=== PATIENT | male | born 1965 | race Caucasian/White ===

== ENCOUNTER 2019-06-01 18:48 | Emergency (ER) | payer OTHER, SELFPAY ==
[2019-06-01] VITALS (58 sets, daily range): BP systolic 92–152; BP diastolic 64–96; PULSE 56–91; RESP 8–25; TEMP 36.6; O2SAT 88–99
--- NOTE | 2019-06-01 18:54 | W.ED.GENAD ---
Discharge Plan Disposition Patient Disposition: HOME Condition: Fair Discharge Details Chief Complaint: Chest Pain Clinical Impression: Atypical chest pain Primary Care Provider: Carlos Leroy JR ED Provider: Ally Mccullough Home Meds and New Rx's Prescriptions: Continued celecoxib [Celebrex] 200 mg Capsule 200 mg PO BID RF: 0 lamotrigine [Lamictal] 200 mg Tablet 400 mg PO QAM RF: 0 oxybutynin chloride [Ditropan XL] 10 mg Tablet Extended Release 24hr 30 mg PO QAM RF: 0 memantine [Namenda] 10 mg Tablet 50 mg PO QAM RF: 0 bupropion HCl [Wellbutrin XL] 300 mg Tablet Extended Release 24 Hr 450 mg PO QAM RF: 0 baclofen 20 mg Tablet 20 mg PO QID RF: 0 gabapentin [Neurontin] 600 mg Tablet 300 - 600 mg PO QID RF: 0 oxymorphone 40 mg Tablet Extended Release 12 Hr 40 mg PO BID RF: 0 oxymorphone 20 mg Tablet Extended Release 12 Hr 20 mg PO BID RF: 0 omega-3 fatty acids [Fish Oil Concentrate] 1,000 mg Capsule 2,000 mg PO TID RF: 0 glucosamine [id number] [TripleFlex] 750-375-400 mg Tablet 1 tab PO BID RF: 0 PreserVision Lutein 226 mg-200 unit -5 mg-0.8 mg Capsule 1 cap PO BID RF: 0 docusate sodium [Colace] 100 mg Capsule 100 mg PO TID RF: 0 calcium citrate-vitamin D3 [Citracal Regular] 250 mg calcium- 200 unit Tablet 1 tab PO DAILY RF: 0 L-Arginine(alpha-ketoglutarat) 350 mg Tablet Extended Release 350 mg PO DAILY RF: 0 levomefolate calcium [L-Methylfolate] 15 mg Tablet 15 mg PO DAILY RF: 0 oxymorphone 20 mg Tablet Extended Release 12 Hr 20 mg PO HS RF: 0 tizanidine 4 mg Tablet 4 mg PO BID RF: 0 zaleplon 10 mg Capsule 20 mg PO HS RF: 0 melatonin 10 mg Tablet 10 mg PO HS RF: 0 Movantik 25 mg Tablet 50 mg PO DAILY RF: 0 fluticasone propionate [Flonase Allergy Relief] 50 mcg/actuation [place],Suspension 1 spray INTRANASAL DAILY PRNRF: 0 ketorolac 30 mg/mL Solution 30 mg IM PRN PRNRF: 0 testosterone 1 % (25 mg/2.5gram) Gel In Packet 1 packet topical DIRECTED PRNRF: 0 amoxicillin 500 mg Capsule 500 mg PO DIRECTED PRNRF: 0 multivitamin Tablet 1 tab PO DAILY RF: 0 atorvastatin [Lipitor] 20 mg Tablet 20 mg PO DAILY RF: 0 hydrochlorothiazide 25 mg Tablet 25 mg PO DAILY RF: 0 ondansetron 4 mg Tablet,Disintegrating 4 mg PO Q6H PRNRF: 0 omeprazole 20 mg Tablet,Delayed Release (Dr/Ec) 20 mg PO DAILY RF: 0 Ketoprofen/Ketamine topical PRNRF: 0 Discharge Instructions Instructions: Chest Pain (ED) Additional Instructions: Encourage hydration. Please continue with pain medications as previously prescribed. Please call primary care tomorrow to arrange for follow up within the next week. If you develop fevers/chills, exertional pain, increased pain, shortness of breath or other new/worsening symptoms please seek care urgently once again. Referrals: Carlos Leroy JR [Primary Care Provider] - Medical Decision Making Patient is a 54-year-old male presents today with chief complaint of left lower chest pain. He reports the pain is been consistent over the past 24 hours. Denies any shortness of breath. No cardiac history. No history of first-degree relatives with cardiac disease. States the pain is primarily on the left lower aspect of the chest radiating around towards the back. Denies any recent trauma. No recent travel. No shortness of breath. No pain with inspiration. Denies any alcohol consumption. Denies any fevers or chills. Has not had pain like this historically. Pain is not exacerbated with exertion. States the pain did wake him up last night from sleep. Rates the pain at a 4 out of 10. States that he is on chronic pain medication and does find that the pain improves with his regularly scheduled narcotics. Pain also improved after taking p.o. Toradol. On exam, patient has pulses equal bilaterally. Lungs are clear. Normal cardiac exam. Pain is not elicited with palpation. Plan for aspirin, nitro and laboratory and imaging evaluation. His history is not highly suspicious of ACS this certainly is the most worrisome differential. He is not tachycardic, tachypneic, hypoxic, shortness of breath, pleuritic pain or pain in the lower extremities to suggest a PE. 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 EKG was reviewed by Dr. Moise. Normal sinus rhythm with a rate of 76. No evidence of acute infarction. However, he does note that there are changes suggesting possible old inferior infarct. No previous EKGs for comparison. Labs reviewed by myself, CBC is normal. BUN is slightly elevated 21. Lipase is within normal limits. Troponin is less than 0.05. Patient received aspirin and nitro. Blood pressure was maintained despite the nitroglycerin. He denied any change in his discomfort after nitroglycerin. FINDINGS: Lungs: There is no focal infiltrate. Pleural space: Unremarkable. No pleural effusion. No pneumothorax. Heart/Mediastinum: The heart is normal in size. Bones/joints: EKG wires overlie the chest. There is a neurostimulator device in the lower thoracic spine. The film is lordotic. There is multilevel degenerative changes of the thoracic spine and multiple anterior compression deformities of the thoracic and lumbar spine. IMPRESSION: No acute cardiopulmonary findings. Labs reviewed, no leukocytosis, troponin is less than 0.05, no elevation of lipase. Patient reports the pain is status quo as it has been the entire time. Patient did take his evening narcotics and reports only minimal improvement. Patient is tender with palpation of the epigastric area, will trial GI cocktail. No relief with GI cocktail. Patient is now reporting that his pain is greatly increased. No shortness of breath, he is not tachycardic. Will repeat EKG and obtain a 3-hour troponin. Discussed the plan with the patient is in agreement. EKG reviewed by Dr. Romo with no acute changes. Patient will be given morphine to help with discomfort. Pain persists despite morphine. He is on a large amount of narcotics at baseline. Repeat troponin remains <0.05, D-dimer WNL. Discussed findinsg with the patient and his . History does not sound to be cardiac based. His troponins, EKG are reassuring. It has been >24 hours since onset. No cardiac hx. HEART score 2. Feel that patient is safe for discharge with prompt f/u with PCP. Patietn feels that he is ready to be discharged at this time as well. He was given strict return precautions and is able to return with worsening symptoms. All of his quesitons and concerns were addressed, he is in agreement with this plan. HPI General Mode of arrival: ambulatory. Date/Time Provider Initiated Documentation: 06/01/19 18:54. Limitations to Documentation: no limitations. Information obtained by: patient, family () and RN notes reviewed. History of Present Illness 54 year old M presents to the emergency department with the chief complaint of left lower chest pain, described as moderate, with intensity rated at 4. Quality is described as aching, and is localized to the chest. Patient reports no radiation. Patient started experiencing this day(s) (1) and it has been constant. No relieving factors improve symptom(s), No exacerbating factors reported . Patient notes chest pain; denies cough, diaphoresis, fever/chills, loss of appetite, nausea/vomiting, rash, shortness of breath and weakness. Patient did receive the following treatments prior to arrival, other (patient on chronic opiate therapy) Related Data Home Medications Medication Instructions Recorded Confirmed Ketoprofen/Ketamine TOPICAL PRN 06/01/19 L-Arginine(alpha-ketoglutarat) 350 mg PO DAILY 06/01/19 06/01/19 Movantik 50 mg PO DAILY 06/01/19 06/01/19 PreserVision Lutein 1 cap PO BID 06/01/19 06/01/19 amoxicillin 500 mg PO DIRECTED PRN 06/01/19 06/01/19 atorvastatin [Lipitor] 20 mg PO DAILY 06/01/19 06/01/19 baclofen 20 mg PO QID 06/01/19 06/01/19 bupropion HCl [Wellbutrin XL] 450 mg PO QAM 06/01/19 06/01/19 calcium citrate-vitamin D3 1 tab PO DAILY 06/01/19 06/01/19 [Citracal Regular] celecoxib [Celebrex] 200 mg PO BID 06/01/19 06/01/19 docusate sodium [Colace] 100 mg PO TID 06/01/19 06/01/19 fluticasone propionate [Flonase 1 spray INTRANASAL DAILY PRN 06/01/19 06/01/19 Allergy Relief] gabapentin [Neurontin] 300 - 600 mg PO QID 06/01/19 06/01/19 glucosamine [id number] 1 tab PO BID 06/01/19 06/01/19 [TripleFlex] hydrochlorothiazide 25 mg PO DAILY 06/01/19 06/01/19 ketorolac 30 mg IM PRN PRN 06/01/19 06/01/19 lamotrigine [Lamictal] 400 mg PO QAM 06/01/19 06/01/19 levomefolate calcium 15 mg PO DAILY 06/01/19 06/01/19 [L-Methylfolate] melatonin 10 mg PO HS 06/01/19 06/01/19 memantine [Namenda] 50 mg PO QAM 06/01/19 06/01/19 multivitamin 1 tab PO DAILY 06/01/19 06/01/19 omega-3 fatty acids [Fish Oil 2,000 mg PO TID 06/01/19 06/01/19 Concentrate] omeprazole 20 mg PO DAILY 06/01/19 06/01/19 ondansetron 4 mg PO Q6H PRN 06/01/19 06/01/19 oxybutynin chloride [Ditropan XL] 30 mg PO QAM 06/01/19 06/01/19 oxymorphone 20 mg PO BID 06/01/19 06/01/19 oxymorphone 20 mg PO HS 06/01/19 06/01/19 oxymorphone 40 mg PO BID 06/01/19 06/01/19 testosterone 1 packet TOPICAL DIRECTED PRN 06/01/19 06/01/19 tizanidine 4 mg PO BID 06/01/19 06/01/19 zaleplon 20 mg PO HS 06/01/19 06/01/19 Allergies Allergy/AdvReac Type Severity Reaction Status Date / Time fentanyl AdvReac Nausea Unverified 06/01/19 18:56 gabapentin AdvReac Headache Unverified 06/01/19 18:56 Review of Systems Constitutional Reports as per HPI, Denies chills, Denies fever(s), Denies headache(s), Denies lethargy and Denies poor appetite Eyes Denies change in vision ENT Denies dizziness and Denies headache(s) Cardiovascular Reports as per HPI, Denies dyspnea and Denies dyspnea on exertion Respiratory Reports as per HPI, Denies chest congestion, Denies cough, Denies pain on inspiration, Denies pain with cough, Denies dyspnea, Denies dyspnea on exertion and Denies wheezing Gastrointestinal Reports as per HPI, Denies abdominal pain, Denies diarrhea, Denies nausea and Denies vomiting Genitourinary Denies system reviewed and no additional complaints, except as docu (denies change in urinary habits) Musculoskeletal Reports as per HPI and Denies back pain Integumentary/Breasts Reports as per HPI and Denies rash Neurologic Reports as per HPI, Denies dizziness and Denies headache(s) Allergic/Immunologic Denies wheezing FOR[facility]LY [facility], [facility] Social History Smoking/Tobacco Use Status: Never Alcohol Intake: never Drug use: Never Do you feel safe at home: Yes Do you feel safe in your relationship?: Yes Exam Const General: cooperative, healthy appearing, comfortable, no acute distress and well developed Nutritional Appearance: average body habitus and well nourished Orientation: alert, awake and oriented x3 HENMT Head: normal to inspection Ears: hearing grossly normal bilaterally Mouth: moist mucous membranes Chest Chest: normal inspection of the chest, normal palpation of entire chest wall and no crepitus Resp Effort & Inspection: normal respiratory effort, able to speak in complete sentences and no respiratory distress Auscultation: clear to auscultation bilaterally, no rales, no rhonchi and no wheezes Cardio Rate: regular rate Rhythm: regular rhythm Heart Sounds: S1 normal and S2 normal GI Inspection: normal to inspection, no edema and non-distended Palpation: soft, no hepatosplenomegaly, not firm, no guarding, not rigid and nontender Auscultation: normal bowel sounds Back/Spine/Pelvis Back: no CVA tenderness Thoracic/Lumbar Spine: thoracic and lumbar spine normal to inspection Skin General skin exam: no rashes or lesions noted Trauma: no lacerations or abrasions Neuro General: alert, awake and oriented x3 Cognition: normal cognition Speech: speech normal Gait: normal gait Extrem General: normal to inspection, normal capillary refill, no pedal edema, no calf tenderness and normal gait Psych Appearance: grossly normal and well kempt Mental Status: mental status grossly normal Speech and Movement: speech and movement normal
[2019-06-01] MEDS: Normal Saline Flush 10 ML SYR IVP (19:00)
--- NOTE | 2019-06-01 19:12 | DI.RAD_ITS ---
SYMPTOMS/DIAGNOSIS: LEFT LOWER CHEST PAIN AP AND LATERAL CHEST: There are no prior comparison exams. The exam is somewhat limited by patient positioning and poor pulmonary inflation. The heart size is within normal limits. The aorta is tortuous. A spinal stimulator lead is seen in the lower thoracic region. The lungs appear clear. There are degenerative changes of the thoracic spine with multiple mild compression fractures. IMPRESSION: No acute abnormality.
[2019-06-01] MEDS: Aspirin 81 MG CHEW 324 MG CH (19:15)
[2019-06-01 19:20] LABS: Abs Immature Grans 0.03 k/cumm (0.0-0.09); Absolute Basophil Count 0.02 k/cumm (0.0-0.2); Absolute Eosinophil Count 0.11 k/cumm (0.0-0.7); Absolute Lymphocyte Count 1.78 k/cumm (1.2-3.4); Basophils % 0.2; Eosinophils % 1.3; HCT 48.4 % (40.0-50.0); HGB 16.1 g/dL (13.5-17.5); Immature Grans % 0.3; Lymphocytes % 20.6; Mean Corp. HGB Concentration 33.3 g/dL (32.0-36.0); Mean Corpuscular Hemoglobin 30.7 pg (27.0-33.0); Mean Corpuscular Volume 92.4 fL (80-95); Mean Platelet Volume 9.8 fL (8.0-11.0); Monocytes % 8.1; Neutrophils % 69.5; Platelet Count 245 x1000/uL (130-400); RBC 5.24 m/cumm (4.50-6.00); White Blood Cell Count 8.64 k/cumm (4.4-10.8)
[2019-06-01 19:42] LABS: ALT 32 U/L (16-63); AST 22 U/L (15-37); Albumin 3.8 g/dL (3.4-5.0); Alkaline Phosphatase 85 U/L (46-116); Anion Gap 7.8 mmol/L (3-11); BUN 21 mg/dL (7-18); Bilirubin, Total 0.4 mg/dL (0.2-1.0); CO2 31.2 mmol/L (21.0-32.0); CREATININE 1.23 mg/dL (0.70-1.30); Calcium 9.1 mg/dL (8.5-10.1); Chloride 101 mmol/L (98-107); Glucose 98 mg/dL (70-100); Lipase 62 U/L (73-393); NT-proBNP 43 pg/mL; Potassium 4.1 mmol/L (3.5-5.1); Sodium 140 mmol/L (136-145); Total Protein 7.9 g/dL (6.4-8.2)
[2019-06-01 19:43] LABS: Troponin I < 0.05 ng/mL (0.00-0.06)
--- NOTE | 2019-06-01 19:49 | DI.VRAD_ITS ---
EXAM: XR Chest, 2 Views EXAM DATE/TIME: 06/01/2019 7:13 PM CLINICAL HISTORY: 54 years old, male; Other: Lower lt cp TECHNIQUE: Imaging protocol: XR of the chest Views: 2 views. COMPARISON: No relevant prior studies available. FINDINGS: Lungs: There is no focal infiltrate. Pleural space: Unremarkable. No pleural effusion. No pneumothorax. Heart/Mediastinum: The heart is normal in size. Bones/joints: EKG wires overlie the chest. There is a neurostimulator device in the lower thoracic spine. The film is lordotic. There is multilevel degenerative changes of the thoracic spine and multiple anterior compression deformities of the thoracic and lumbar spine. IMPRESSION: No acute cardiopulmonary findings. Dictated and Authenticated by: Janie Wong MD. Ordering:RANGEL Canales MD
[2019-06-01 22:53] LABS: Troponin I < 0.05 ng/mL (0.00-0.06)
[2019-06-01] MEDS: Lidocaine 5% Patch 1 PATCH (22:55)
[2019-06-01 23:16] LABS: D-Dimer 387 ng/mlFEU (<500)
== END 2019-06-01 23:54 | disposition home or self-care (01) ==
PROVIDERS: Emergency Provider Physician Assistant; PCP Family Medicine
DX: R07.89 Other chest pain (principal)
CPT/HCPCS: 36415; 80053; 83690; 93005; 96374; 99285; 71046; 83735; 83880; 84484; 85025; 85379; 93010

== ENCOUNTER 2019-06-05 03:43 | Emergency (ER) | payer OTHER, SELFPAY ==
[2019-06-05] VITALS (9 sets, daily range): BP systolic 111–129; BP diastolic 69–76; PULSE 72–94; RESP 12–30; TEMP 37; O2SAT 92–96
--- NOTE | 2019-06-05 03:49 | W.ED.GENAD ---
Discharge Plan Disposition Patient Disposition: HOME Condition: Stable Discharge Details Chief Complaint: GenMedical Clinical Impression: Chest pain, Back pain, Muscle spasm Primary Care Provider: Carlos Leroy JR ED Provider: Vick Colon Widener Meds and New Rx's Prescriptions: New diazepam [Valium] 5 mg tablet 5 mg PO TID PRN (Reason: muscle spasm) Qty: 14 RF: 0 Continued celecoxib [Celebrex] 200 mg Capsule 200 mg PO BID RF: 0 lamotrigine [Lamictal] 200 mg Tablet 400 mg PO QAM RF: 0 oxybutynin chloride [Ditropan XL] 10 mg Tablet Extended Release 24hr 30 mg PO QAM RF: 0 memantine [Namenda] 10 mg Tablet 50 mg PO QAM RF: 0 bupropion HCl [Wellbutrin XL] 300 mg Tablet Extended Release 24 Hr 450 mg PO QAM RF: 0 baclofen 20 mg Tablet 20 mg PO QID RF: 0 gabapentin [Neurontin] 600 mg Tablet 300 - 600 mg PO QID RF: 0 oxymorphone 40 mg Tablet Extended Release 12 Hr 40 mg PO BID RF: 0 oxymorphone 20 mg Tablet Extended Release 12 Hr 20 mg PO BID RF: 0 omega-3 fatty acids [Fish Oil Concentrate] 1,000 mg Capsule 2,000 mg PO TID RF: 0 glucosamine [id number] [TripleFlex] 750-375-400 mg Tablet 1 tab PO BID RF: 0 PreserVision Lutein 226 mg-200 unit -5 mg-0.8 mg Capsule 1 cap PO BID RF: 0 docusate sodium [Colace] 100 mg Capsule 100 mg PO TID RF: 0 calcium citrate-vitamin D3 [Citracal Regular] 250 mg calcium- 200 unit Tablet 1 tab PO DAILY RF: 0 L-Arginine(alpha-ketoglutarat) 350 mg Tablet Extended Release 350 mg PO DAILY RF: 0 levomefolate calcium [L-Methylfolate] 15 mg Tablet 15 mg PO DAILY RF: 0 oxymorphone 20 mg Tablet Extended Release 12 Hr 20 mg PO HS RF: 0 tizanidine 4 mg Tablet 4 mg PO BID RF: 0 zaleplon 10 mg Capsule 20 mg PO HS RF: 0 melatonin 10 mg Tablet 10 mg PO HS RF: 0 Movantik 25 mg Tablet 50 mg PO DAILY RF: 0 fluticasone propionate [Flonase Allergy Relief] 50 mcg/actuation [place],Suspension 1 spray INTRANASAL DAILY PRNRF: 0 ketorolac 30 mg/mL Solution 30 mg IM PRN PRNRF: 0 testosterone 1 % (25 mg/2.5gram) Gel In Packet 1 packet topical DIRECTED PRNRF: 0 amoxicillin 500 mg Capsule 500 mg PO DIRECTED PRNRF: 0 multivitamin Tablet 1 tab PO DAILY RF: 0 atorvastatin [Lipitor] 20 mg Tablet 20 mg PO DAILY RF: 0 hydrochlorothiazide 25 mg Tablet 25 mg PO DAILY RF: 0 ondansetron 4 mg Tablet,Disintegrating 4 mg PO Q6H PRNRF: 0 omeprazole 20 mg Tablet,Delayed Release (Dr/Ec) 20 mg PO DAILY RF: 0 Ketoprofen/Ketamine topical PRNRF: 0 Discharge Instructions Instructions: Muscle Spasm (ED) Additional Instructions: follow up with your primary care provider within 1 week especially if symptoms continue do not take the valium within 3 hours of your opiate prescriptions and do not drink alcohol while taking this if you feel you are becoming more ill or have new symptoms such as fevers or persistent vomit return to the emergency department Medical Decision Making 54 yo male who has chronic pain on oxymorphone, gabapentin, toradol, gerd, who comes in with left sided sharp chest pain that radiates to the back and abdomen. this started about 4 days ago suddenly, was seenhere on 06/01 with negative lab work and ecg. He states pain has continued and hasn't been able to sleep tonight so came ehre. He has no rash on exam, soft abdomen without distention, mild luq pain. No cva tenderness. Could be muscle spasm but given degree of pain and radiation of the pain feel dissection should be ruled out, will obtain lab work and imaging to further evaluate. pt feels much better after valium and lab work as well as imaging all unremarkable. Given 4 days of pain and low heart score of 2 do not feel he needs admission or delta troponin as unlikely acs, I suspect muscle spasm. Will have him f/u with pcp. Will prescribe valium but did advise not to take it within several horus of his opiates. Return precautions given Medical Records Medical records reviewed: Yes I reviewed the patient's medical records. Imaging Data Radiologic Study: Attestation: I personally reviewed and interpreted this imaging study as follows: Imaging: CT Scan Radiologist's impression: Institution Name: [place] [address] Study Type: CTA CHESTCTA ABDOMEN/PELVIS Ordered As: CTA THORAX/ABDOMEN/PELVIS Date of Dictation: 05 Jun 2019 EDT Date of Exam: 05 Jun 2019 EDT Account Number: Patient : [id number] Patient Location: ER Filters Assembler: Referring Physician: Vick COLON This interpretation is based upon the receipt of 2322 images. Page 1 of 3 EXAM: CT Angiography Chest With Contrast EXAM DATE/TIME: 06/05/2019 3:53 AM CLINICAL HISTORY: 54 years old, male; Left-sided chest pain; Abdominal pain; Other: Left chest back and abdomen; Prior surgery; Surgery date: 6+ months; Surgery type: Neurotransmitter placement, updated/replaced 2017 TECHNIQUE: Imaging protocol: Computed tomographic angiography of the chest with intravenous contrast. 3D rendering: MIP reconstructed images were created and reviewed. Radiation optimization: All CT scans at this facility use at least one of these dose optimization techniques: automated exposure control; mA and/or kV adjustment per patient size (includes targeted exams where dose is matched to clinical indication); or iterative reconstruction. Contrast material: [id number]; Contrast volume: 125 ml; Contrast route: IV RAC 18G; COMPARISON: CR XR CHEST 2V PA LATERAL 06/01/2019 7:26 PM FINDINGS: Tubes, catheters and devices: Neurostimulatory device with lead tip in posterior central spinal canal at the level of T9 vertebral body. Generator is in subcutaneous tissues about right buttock. Pulmonary arteries: Normal. No pulmonary emboli. Aorta: Unremarkable. No aortic aneurysm. No aortic dissection. Lungs: There is minimal bibasilar atelectasis. Pleural space: Unremarkable. No pneumothorax. No pleural effusion. Heart: Unremarkable. No cardiomegaly. No pericardial effusion. Lymph nodes: Unremarkable. No enlarged lymph nodes. Bones/joints: The spine demonstrates moderate degenerative changes at multiple levels. Soft tissues: Unremarkable. GADIEL WELCH Preliminary Radiology Report Page 2 of 3 IMPRESSION: 1. No aortic aneurysm or dissection. 2. No pulmonary emboli demonstrated. EXAM: CT Angiography Abdomen and Pelvis With Contrast EXAM DATE/TIME: 06/05/2019 3:53 AM CLINICAL HISTORY: 54 years old, male; Left-sided chest pain; Abdominal pain; Other: Left chest back and abdomen; Prior surgery; Surgery date: 6+ months; Surgery type: Neurotransmitter placement, updated/replaced 2017 TECHNIQUE: Imaging protocol: Computed tomographic angiography of the abdomen and pelvis with intravenous contrast material. 3D rendering: MIP reconstructed images were created and reviewed. Radiation optimization: All CT scans at this facility use at least one of these dose optimization techniques: automated exposure control; mA and/or kV adjustment per patient size (includes targeted exams where dose is matched to clinical indication); or iterative reconstruction. COMPARISON: CR XR CHEST 2V PA LATERAL 06/01/2019 7:26 PM FINDINGS: VASCULATURE: Aorta: No aortic aneurysm. No aortic dissection. Celiac trunk and mesenteric arteries: No occlusion or significant stenosis. Renal arteries: No occlusion or significant stenosis. Right iliac arteries: No occlusion or significant stenosis. Left iliac arteries: No occlusion or significant stenosis. ABDOMEN: Liver: No mass. Gallbladder and bile ducts: Unremarkable. No calcified stones. No ductal dilation. Pancreas: Unremarkable. No mass. No ductal dilation. Spleen: Unremarkable. No splenomegaly. Adrenals: Unremarkable. No mass. Kidneys and ureters: Unremarkable. No solid mass. No hydronephrosis. Stomach and bowel: Unremarkable. No obstruction. Distal colon is contracted. Wall thickening cannot be excluded in distal left colon. GADIEL WELCH Preliminary Radiology Report SUGAR REFINER (QA) DISCREPANCY? If there is a discrepancy between the preliminary and final interpretation, please notify [facility] via [email or web address]. If you do not have access to our QA portal, call our QA team at [phone] CONFIDENTIALITY STATEMENT This report is intended only for the use of the referring physician, and only in accordance with law, If you received this in error, call [phone] Page 3 of 3 Appendix: No evidence of appendicitis. PELVIS: Bladder: Unremarkable. No mass. Reproductive: Unremarkable as visualized. ABDOMEN and PELVIS: Intraperitoneal space: Unremarkable. No free air. No significant fluid collection. Bones/joints: No acute fracture. No dislocation. The spine demonstrates mild degenerative changes at multiple levels. Soft tissues: Both inguinal canals are distended fat. Lymph nodes: Unremarkable. No enlarged lymph nodes. IMPRESSION: 1. No aortic aneurysm or dissection. 2. No aortic, mesenteric, renal or peripheral arterial stenoses. 3. Wall thickening cannot be excluded in distal colon and if present could be due to colitis or less likely diffuse infiltrative process. 4. Fat containing inguinal hernias. Thank you for allowing us to participate in the care of your patient. Dictated and Authenticated by: Marciano Osuna DO Lab Data Lab results reviewed: Yes I reviewed the patient's lab results. ECG Data Attestation: I personally reviewed and interpreted this ECG (s) as follows: Prior ECG tracings: available for review Interpretation: sinus rhythm, rate of 87, pr 162, no acute st t wave ischemic findings HPI General Mode of arrival: ambulatory. Date/Time Provider Initiated Documentation: 06/05/19 03:49. Limitations to Documentation: no limitations. Information obtained by: patient. History of Present Illness 54 year old M presents to the emergency department with the chief complaint of left chest pain, described as moderate and severe, Quality is described as sharp, and is localized to the chest. Patient reports radiation to back and abdomen. Patient started experiencing this day(s) (4) and it has been constant. No relieving factors improve symptom(s), No exacerbating factors reported . Related Data Home Medications Medication Instructions Recorded Confirmed Ketoprofen/Ketamine TOPICAL PRN 06/01/19 L-Arginine(alpha-ketoglutarat) 350 mg PO DAILY 06/01/19 06/05/19 Movantik 50 mg PO DAILY 06/01/19 06/05/19 PreserVision Lutein 1 cap PO BID 06/01/19 06/05/19 amoxicillin 500 mg PO DIRECTED PRN 06/01/19 06/05/19 atorvastatin [Lipitor] 20 mg PO DAILY 06/01/19 06/05/19 baclofen 20 mg PO QID 06/01/19 06/05/19 bupropion HCl [Wellbutrin XL] 450 mg PO QAM 06/01/19 06/05/19 calcium citrate-vitamin D3 1 tab PO DAILY 06/01/19 06/05/19 [Citracal Regular] celecoxib [Celebrex] 200 mg PO BID 06/01/19 06/05/19 docusate sodium [Colace] 100 mg PO TID 06/01/19 06/05/19 fluticasone propionate [Flonase 1 spray INTRANASAL DAILY PRN 06/01/19 06/05/19 Allergy Relief] gabapentin [Neurontin] 300 - 600 mg PO QID 06/01/19 06/05/19 glucosamine [id number] 1 tab PO BID 06/01/19 06/05/19 [TripleFlex] hydrochlorothiazide 25 mg PO DAILY 06/01/19 06/05/19 ketorolac 30 mg IM PRN PRN 06/01/19 06/05/19 lamotrigine [Lamictal] 400 mg PO QAM 06/01/19 06/05/19 levomefolate calcium 15 mg PO DAILY 06/01/19 06/05/19 [L-Methylfolate] melatonin 10 mg PO HS 06/01/19 06/05/19 memantine [Namenda] 50 mg PO QAM 06/01/19 06/05/19 multivitamin 1 tab PO DAILY 06/01/19 06/05/19 omega-3 fatty acids [Fish Oil 2,000 mg PO TID 06/01/19 06/05/19 Concentrate] omeprazole 20 mg PO DAILY 06/01/19 06/05/19 ondansetron 4 mg PO Q6H PRN 06/01/19 06/05/19 oxybutynin chloride [Ditropan XL] 30 mg PO QAM 06/01/19 06/05/19 oxymorphone 20 mg PO BID 06/01/19 06/05/19 oxymorphone 20 mg PO HS 06/01/19 06/05/19 oxymorphone 40 mg PO BID 06/01/19 06/05/19 testosterone 1 packet TOPICAL DIRECTED PRN 06/01/19 06/05/19 tizanidine 4 mg PO BID 06/01/19 06/05/19 zaleplon 20 mg PO HS 06/01/19 06/05/19 diazepam [Valium] 5 mg PO TID PRN #14 tab 06/05/19 Previous Rx's Medication Instructions Recorded diazepam [Valium] 5 mg PO TID PRN #14 tab 06/05/19 Allergies Allergy/AdvReac Type Severity Reaction Status Date / Time fentanyl AdvReac Nausea Unverified 06/01/19 18:56 gabapentin AdvReac Headache Unverified 06/01/19 18:56 General CARLITA: 2 Review of Systems Review of Systems All systems reviewed & are unremarkable except as noted in HPI and below Constitutional Denies chills, Denies fever(s) and Denies weakness Cardiovascular Denies dyspnea Respiratory Denies cough and Denies dyspnea Gastrointestinal Denies nausea and Denies vomiting Musculoskeletal Denies joint swelling Neurologic Denies weakness [facility] Medical History (Updated 06/05/19 @ 03:56 by Nell Graves) Chronic pain (Chronic) High blood cholesterol (Chronic) High blood pressure (Chronic) Leg pain (Acute) Social History Smoking/Tobacco Use Status: Never Alcohol Intake: never Drug use: Never Do you feel safe at home: Yes Do you feel safe in your relationship?: Yes Exam Const General: anxious Orientation: alert HENMT Head: normal to inspection Ears: external ears normal General nose exam: external nose normal Mouth: moist mucous membranes Eyes General: appearance normal, both eyes and all related structures Neck Neck: normal visual inspection Resp Effort & Inspection: normal respiratory effort and able to speak in complete sentences Cardio Rate: regular rate Skin General skin exam: no rashes or lesions noted Neuro General: alert and oriented x3 Extrem General: normal to inspection Psych Mental Status: mental status grossly normal
--- NOTE | 2019-06-05 03:52 | DI.CT_ITS ---
SYMPTOM/DIAGNOSIS: LT SIDED CHEST AND BACK PAIN CHEST, ABDOMEN AND PELVIC CTA: CT angiography was performed with multi slice acquisition and multi planar and 3D reconstruction. CT angiography of the chest, abdomen and pelvis was performed with a bolus infusion of 100 cc's of Omnipaque 350. Note is made of a spinal neurostimulator in the lower thoracic region. There are marked degenerative changes of the lumbar spine. Lungs are generally clear. No pleural effusion. No evidence of pulmonary embolic disease. No thoracic aortic aneurysm or dissection. No mediastinal or hilar adenopathy. Liver, spleen and pancreas appear normal. Gallbladder and bile ducts are CT normal. Appendix appears normal. There is question of possible mild wall thickening of the rectosigmoid, this may just be due to under distention. Adrenals and kidneys are unremarkable. No abdominal or pelvic adenopathy. No significant abdominal wall hernia. Abdominal aorta is of normal diameter and major aortic branches appear normal. CONCLUSION: Negative CT angiography chest, abdomen and pelvis. Mild distal colitis not excluded but this appearance may just be due to under distension.
[2019-06-05] MEDS: diazePAM 10 MG/2 ML SYR 5 MG IVP (04:04)
[2019-06-05 04:16] LABS: Abs Immature Grans 0.02 k/cumm (0.0-0.09); Absolute Basophil Count 0.03 k/cumm (0.0-0.2); Absolute Eosinophil Count 0.21 k/cumm (0.0-0.7); Absolute Lymphocyte Count 2.38 k/cumm (1.2-3.4); Absolute Neutrophil Count 2.68 k/cumm (1.2-6.7); Basophils % 0.5; Eosinophils % 3.5; HCT 47.3 % (40.0-50.0); HGB 15.9 g/dL (13.5-17.5); Immature Grans % 0.3; Lymphocytes % 39.5; Mean Corp. HGB Concentration 33.6 g/dL (32.0-36.0); Mean Corpuscular Hemoglobin 30.9 pg (27.0-33.0); Mean Corpuscular Volume 91.8 fL (80-95); Mean Platelet Volume 9.8 fL (8.0-11.0); Monocytes % 11.6; Neutrophils % 44.6; Platelet Count 245 x1000/uL (130-400); RBC 5.15 m/cumm (4.50-6.00); RBC Distribution Width 13.1 % (11.8-14.1); White Blood Cell Count 6.02 k/cumm (4.4-10.8)
[2019-06-05] MEDS: Omnipaque 350 MG/ML 100 ML BTL IJ (04:27)
[2019-06-05] MEDS: Omnipaque 350 MG/ML 50 ML BTL IJ (04:28)
[2019-06-05 04:40] LABS: ALT 30 U/L (16-63); AST 24 U/L (15-37); Albumin 3.9 g/dL (3.4-5.0); Alkaline Phosphatase 84 U/L (46-116); Anion Gap 8.3 mmol/L (3-11); BUN 21 mg/dL (7-18); Bilirubin, Direct 0.06 mg/dL (0.00-0.20); Bilirubin, Total 0.2 mg/dL (0.2-1.0); CO2 29.7 mmol/L (21.0-32.0); CREATININE 1.26 mg/dL (0.70-1.30); Calcium 8.9 mg/dL (8.5-10.1); Chloride 102 mmol/L (98-107); Estimated GFR 59.87 (mL/min/1.73m2); Glucose 78 mg/dL (70-100); Lipase 63 U/L (73-393); Potassium 3.6 mmol/L (3.5-5.1); Sodium 140 mmol/L (136-145)
[2019-06-05 04:43] LABS: Magnesium 2.2 mg/dL (1.8-2.4)
[2019-06-05 04:46] LABS: Troponin I < 0.05 ng/mL (0.00-0.06)
[2019-06-05 04:58] LABS: Prothrombin Time 10.4 sec (9.3-11.0)
--- NOTE | 2019-06-05 05:12 | DI.VRAD_ITS ---
EXAM: CT Angiography Chest With Contrast EXAM DATE/TIME: 06/05/2019 3:53 AM CLINICAL HISTORY: 54 years old, male; Left-sided chest pain; Abdominal pain; Other: Left chest back and abdomen; Prior surgery; Surgery date: 6+ months; Surgery type: Neurotransmitter placement, updated/replaced 2017 TECHNIQUE: Imaging protocol: Computed tomographic angiography of the chest with intravenous contrast. 3D rendering: MIP reconstructed images were created and reviewed. Radiation optimization: All CT scans at this facility use at least one of these dose optimization techniques: automated exposure control; mA and/or kV adjustment per patient size (includes targeted exams where dose is matched to clinical indication); or iterative reconstruction. Contrast material: [id number]; Contrast volume: 125 ml; Contrast route: IV RAC 18G; COMPARISON: CR XR CHEST 2V PA LATERAL 06/01/2019 7:26 PM FINDINGS: Tubes, catheters and devices: Neurostimulatory device with lead tip in posterior central spinal canal at the level of T9 vertebral body. Generator is in subcutaneous tissues about right buttock. Pulmonary arteries: Normal. No pulmonary emboli. Aorta: Unremarkable. No aortic aneurysm. No aortic dissection. Lungs: There is minimal bibasilar atelectasis. Pleural space: Unremarkable. No pneumothorax. No pleural effusion. Heart: Unremarkable. No cardiomegaly. No pericardial effusion. Lymph nodes: Unremarkable. No enlarged lymph nodes. Bones/joints: The spine demonstrates moderate degenerative changes at multiple levels. Soft tissues: Unremarkable. IMPRESSION: 1. No aortic aneurysm or dissection. 2. No pulmonary emboli demonstrated. EXAM: CT Angiography Abdomen and Pelvis With Contrast EXAM DATE/TIME: 06/05/2019 3:53 AM CLINICAL HISTORY: 54 years old, male; Left-sided chest pain; Abdominal pain; Other: Left chest back and abdomen; Prior surgery; Surgery date: 6+ months; Surgery type: Neurotransmitter placement, updated/replaced 2017 TECHNIQUE: Imaging protocol: Computed tomographic angiography of the abdomen and pelvis with intravenous contrast material. 3D rendering: MIP reconstructed images were created and reviewed. Radiation optimization: All CT scans at this facility use at least one of these dose optimization techniques: automated exposure control; mA and/or kV adjustment per patient size (includes targeted exams where dose is matched to clinical indication); or iterative reconstruction. COMPARISON: CR XR CHEST 2V PA LATERAL 06/01/2019 7:26 PM FINDINGS: VASCULATURE: Aorta: No aortic aneurysm. No aortic dissection. Celiac trunk and mesenteric arteries: No occlusion or significant stenosis. Renal arteries: No occlusion or significant stenosis. Right iliac arteries: No occlusion or significant stenosis. Left iliac arteries: No occlusion or significant stenosis. ABDOMEN: Liver: No mass. Gallbladder and bile ducts: Unremarkable. No calcified stones. No ductal dilation. Pancreas: Unremarkable. No mass. No ductal dilation. Spleen: Unremarkable. No splenomegaly. Adrenals: Unremarkable. No mass. Kidneys and ureters: Unremarkable. No solid mass. No hydronephrosis. Stomach and bowel: Unremarkable. No obstruction. Distal colon is contracted. Wall thickening cannot be excluded in distal left colon. Appendix: No evidence of appendicitis. PELVIS: Bladder: Unremarkable. No mass. Reproductive: Unremarkable as visualized. ABDOMEN and PELVIS: Intraperitoneal space: Unremarkable. No free air. No significant fluid collection. Bones/joints: No acute fracture. No dislocation. The spine demonstrates mild degenerative changes at multiple levels. Soft tissues: Both inguinal canals are distended fat. Lymph nodes: Unremarkable. No enlarged lymph nodes. IMPRESSION: 1. No aortic aneurysm or dissection. 2. No aortic, mesenteric, renal or peripheral arterial stenoses. 3. Wall thickening cannot be excluded in distal colon and if present could be due to colitis or less likely diffuse infiltrative process. 4. Fat containing inguinal hernias. Dictated and Authenticated by: Marciano Osuna MD. Ordering:SINCERE Hickman MD
== END 2019-06-05 05:35 | disposition home or self-care (01) ==
PROVIDERS: Emergency Provider Emergency Medicine; PCP Family Medicine
DX: R07.89 Other chest pain (principal); M54.6 Pain in thoracic spine; M62.830 Muscle spasm of back; I10 Essential (primary) hypertension
CPT/HCPCS: 36415; 74177; 80053; 80076; 83690; 93005; 96374; 99285; 83735; 84484; 85025; 85610; 85730; 93010; 99284; J3360; J3490; Q9967

== ENCOUNTER 2019-11-08 13:03 | Outpatient (CLI) | payer OTHER, SELFPAY ==
[2019-11-08 14:11] LABS: Clarity Clear (Clear); Specific Gravity 1.015 (1.005-1.025)
[2019-11-08 14:12] LABS: Bilirubin Negative (Negative); Blood Negative (Negative); Glucose Negative (Negative); Ketones Negative (Negative); Leukocyte Esterase Negative (Negative); Nitrite Negative (Negative); Urobilinogen 0.2 EU/dL (Up TO 0.2)
== END 2019-11-08 13:23 ==
PROVIDERS: PCP Family Medicine; Visit Provider Urology
DX: N31.9 Neuromuscular dysfunction of bladder, unspecified (principal)
CPT/HCPCS: 81003; 87086

== ENCOUNTER 2020-11-17 21:05 | Emergency (ER) | payer OTHER, SELFPAY ==
[2020-11-17 21:16] VITALS: BP 128/84; PULSE 79; RESP 20; TEMP 37; O2SAT 95
--- NOTE | 2020-11-17 21:33 | ED.GENADUL_ITS ---
Discharge Plan Disposition Patient Disposition: HOME Condition: Stable Discharge Details Clinical Impression: Scapholunate dissociation of left wrist, Contusion of elbow, right Primary Care Provider: Carlos Leroy JR ED Provider: Kip Capone Home Meds and New Rx's Prescriptions: Continued celecoxib [Celebrex] 200 mg Capsule 200 mg PO BID RF: 0 lamotrigine [Lamictal] 200 mg Tablet 400 mg PO QAM RF: 0 oxybutynin chloride [Ditropan XL] 10 mg Tablet Extended Release 24hr 30 mg PO QAM RF: 0 memantine [Namenda] 10 mg Tablet 50 mg PO QAM RF: 0 bupropion HCl [Wellbutrin XL] 300 mg Tablet Extended Release 24 Hr 450 mg PO QAM RF: 0 baclofen 20 mg Tablet 20 mg PO QID RF: 0 gabapentin [Neurontin] 600 mg Tablet 300 - 600 mg PO QID RF: 0 oxymorphone 40 mg Tablet Extended Release 12 Hr 40 mg PO BID RF: 0 oxymorphone 20 mg Tablet Extended Release 12 Hr 20 mg PO BID RF: 0 omega-3 fatty acids [Fish Oil Concentrate] 1,000 mg Capsule 2,000 mg PO TID RF: 0 TripleFlex 750-375-400 mg Tablet 1 tab PO BID RF: 0 PreserVision Lutein 226 mg-200 unit -5 mg-0.8 mg Capsule 1 cap PO BID RF: 0 docusate sodium [Colace] 100 mg Capsule 100 mg PO TID RF: 0 calcium citrate-vitamin D3 [Citracal Regular] 250 mg calcium- 200 unit Tablet 1 tab PO DAILY RF: 0 L-Arginine(alpha-ketoglutarat) 350 mg Tablet Extended Release 350 mg PO DAILY RF: 0 levomefolate calcium [L-Methylfolate] 15 mg Tablet 15 mg PO DAILY RF: 0 oxymorphone 20 mg Tablet Extended Release 12 Hr 20 mg PO HS RF: 0 tizanidine 4 mg Tablet 4 mg PO BID RF: 0 zaleplon 10 mg Capsule 20 mg PO HS RF: 0 melatonin 10 mg Tablet 10 mg PO HS RF: 0 Movantik 25 mg Tablet 50 mg PO DAILY RF: 0 fluticasone propionate [Flonase Allergy Relief] 50 mcg/actuation [place],Suspension 1 spray INTRANASAL DAILY PRNRF: 0 ketorolac 30 mg/mL Solution 30 mg IM PRN PRNRF: 0 testosterone 1 % (25 mg/2.5gram) Gel In Packet 1 packet topical DIRECTED PRNRF: 0 multivitamin Tablet 1 tab PO DAILY RF: 0 atorvastatin [Lipitor] 20 mg Tablet 20 mg PO DAILY RF: 0 hydrochlorothiazide 25 mg Tablet 25 mg PO DAILY RF: 0 ondansetron 4 mg Tablet,Disintegrating 4 mg PO Q6H PRNRF: 0 omeprazole 20 mg Tablet,Delayed Release (Dr/Ec) 20 mg PO DAILY RF: 0 Ketoprofen/Ketamine topical PRNRF: 0 Discharge Instructions Additional Instructions: Please use wrist splint continuously. No use of left wrist until cleared. Please follow-up with orthopedics. Call for an appointment on Friday. Return to the ER for any worsening or new concerning symptoms. Referrals: [facility] [Provider Group] Discharge Data Discharge Date/Time-TO BE ENTERED AT DEPARTURE: 11/17/20 23:05 Medical Decision Making 55-year-old male presents 2 days after slip and fall on ice with injury to left wrist and right elbow. Neurovascular intact distally. No other injury. X-ray of the right elbow reviewed and interpreted by radiology: No fractures or dislocations. Mild degenerative changes. Suspect elbow contusion. X-ray of the left wrist with scaphoid view reviewed and interpreted by radiology: No acute fractures or dislocations. Degenerative changes, scap holunate prolapse. Soft tissue swelling. Concern for scapholunate dissociation. Wrist splint applied. Patient advised to not use his left wrist. I will have patient follow-up with orthopedics. HPI General Mode of arrival: ambulatory . Date/Time Provider Initiated Documentation: 11/17/20 21:16 . Limitations to Documentation: no limitations . Information obtained by: patient . HPI Narrative: 55-year-old male presents with chief complaint of right elbow pain. Patient notes he slipped on ice 2 nights ago and injured his right elbow and left wrist. He notes point t enderness posterior elbow. Pain is moderate with palpation. No associated numbness or tingling. Pain in his left wrist is volar surface over distal radius with associated swelling. Related Data Home Medications Medication Instructions Recorded Confirmed Ketoprofen/Ketamine TOPICAL PRN 06/01/19 L-Arginine(alpha-ketoglutarat) 350 mg PO DAILY 06/01/19 11/17/20 Movantik 50 mg PO DAILY 06/01/19 11/17/20 PreserVision Lutein 1 cap PO BID 06/01/19 11/17/20 TripleFlex 1 tab PO BID 06/01/19 11/17/20 atorvastatin [Lipitor] 20 mg PO DAILY 06/01/19 11/17/20 baclofen 20 mg PO QID 06/01/19 11/17/20 bupropion HCl [Wellbutrin XL] 450 mg PO QAM 06/01/19 11/17/20 calcium citrate-vitamin D3 1 tab PO DAILY 06/01/19 11/17/20 [Citracal Regular] celecoxib [Celebrex] 200 mg PO BID 06/01/19 11/17/20 docusate sodium [Colace] 100 mg PO TID 06/01/19 11/17/20 fluticasone propionate [Flonase 1 spray INTRANASAL DAILY PRN 06/01/19 11/17/20 Allergy Relief] gabapentin [Neurontin] 300 - 600 mg PO QID 06/01/19 11/17/20 hydrochlorothiazide 25 mg PO DAILY 06/01/19 11/17/20 ketorolac 30 mg IM PRN PRN 06/01/19 11/17/20 lamotrigine [Lamictal] 400 mg PO QAM 06/01/19 11/17/20 levomefolate calcium 15 mg PO DAILY 06/01/19 11/17/20 [L-Methylfolate] melatonin 10 mg PO HS 06/01/19 11/17/20 memantine [Namenda] 50 mg PO QAM 06/01/19 11/17/20 multivitamin 1 tab PO DAILY 06/01/19 11/17/20 omega-3 fatty acids [Fish Oil 2,000 mg PO TID 06/01/19 11/17/20 Concentrate] omeprazole 20 mg PO DAILY 06/01/19 11/17/20 ondansetron 4 mg PO Q6H PRN 06/01/19 11/17/20 oxybutynin chloride [Ditropan XL] 30 mg PO QAM 06/01/19 11/17/20 oxymorphone 20 mg PO BID 06/01/19 11/17/20 oxymorphone 20 mg PO HS 06/01/19 11/17/20 oxymorphone 40 mg PO BID 06/01/19 11/17/20 testosterone 1 packet TOPICAL DIRECTED PRN 06/01/19 11/17/20 tizanidine 4 mg PO BID 06/01/19 11/17/20 zaleplon 20 mg PO HS 06/01/19 11/17/20 Allergies Allergy/AdvReac Type Severity Reaction Status Date / Time fentanyl AdvReac Nausea Unverified 11/17/20 21:31 gabapentin AdvReac Headache Unverified 11/17/20 21:31 General Stated Complaint: Orthopedic CARLITA: 4 Review of Systems Musculoskeletal Musculoskeletal: Reports as per HPI Neurologic Neurologic: Reports as per HPI [facility] Medical History Chronic pain High blood cholesterol High blood pressure Leg pain Social History Smoking/Tobacco Use Status: Never Smoking risk assessment performed?: Yes Alcohol Intake: never Drug use: Never Do you feel safe at home: Yes Do you feel safe in your relationship?: Yes Exam Const General: cooperative and no acute distress Cardio Rate: regular rate and not tachycardic Rhythm: regular rhythm Neuro General: patient alert, patient awake, patient oriented x3 and tone normal Extrem Right upper extremity: shoulder/upper arm Details: normal to inspection, elbow/forearm Details: tenderness Location: of the olecranon and normal ROM; no swelling and no crepitus and wrist Details: normal to inspection Left upper extremity: elbow/forearm Details: normal to inspection; no tenderness and wrist Details: tenderness Location: of the distal radius; not of the anatomic snuffbox and abnormal ROM Details: pain with passive ROM Details: in flexion Course Vital Signs Vital signs: Vital Signs Temperature 37.0 C 11/17/20 21:16 Pulse 79 11/17/20 21:16 Respiratory Rate 20 11/17/20 21:16 Blood Pressure 128/84 11/17/20 21:16 Pulse Oximetry 95 11/17/20 21:16 Temperature 37.0 C 11/17/20 21:16 Temperature Source Skin 11/17/20 21:16 Pulse 79 11/17/20 21:16 Respiratory Rate 20 11/17/20 21:16 Respiratory Effort Non-Labored 11/17/20 21:27 Blood Pressure 128/84 11/17/20 21:16 Blood Pressure Position Sitting 11/17/20 21:16 Pulse Oximetry 95 11/17/20 21:16 Oxygen Delivery Method Room Air 11/17/20 21:16 Oxygen Flow Rate 0 11/17/20 21:16 Pain Level 0 11/17/20 21:28
--- NOTE | 2020-11-17 21:38 | DI.RAD_ITS ---
EXAM: XR ELBOW RT COMPLETE CLINICAL HISTORY: fall 2 days ago, point tender posterior. TECHNIQUE: 2D digital imaging was performed. COMPARISON: No exams were available for comparison FINDINGS: There is no evidence of obvious fracture or dislocation nor joint effusion and there is no swelling o f the olecranon bursa. However, there are multiple calcific density seen in the soft tissues adjacen t to the medial epicondyle, most probably related to the common flexor tendon and probably reflecting an element of medial epicondylitis. In addition, posteriorly there is a 4 x 2 millimeter ossified d ensity just above the tip of the posterior olecranon, possibly representing avulsion injury at this l evel. Correlation with site of tenderness is recommended. IMPRESSION: As above. Orthopedic follow-up is recommended. DATA REPOSITORY: RADIATION DOSE DELIVERED:
--- NOTE | 2020-11-17 21:42 | DI.RAD_ITS ---
EXAM: XR WRIST LT COMP NAVICULAR CLINICAL HISTORY: fall 2 days ago, pain and swelling distal radius. TECHNIQUE: 2D digital imaging was performed. COMPARISON: No exams were available for comparison FINDINGS: There is no evidence of acute fracture lines in the distal radius and ulna pillar the ulnar styloid i s deficient in size but not fractured. There is a subarticular cyst in the distal ulna measuring 5 x 4 millimeters. There is significant widening of the scapholunate distance consistent with rupture o f the interosseous ligament. There is no evidence of carpal dislocation. There is a small calcific density measuring 1.4 x 1.0 millimeters just lateral to the distal scaphoid. Mild degenerative lau es are noted at the 1st carpometacarpal joint. IMPRESSION: Significant widening of the scapholunate distance consistent with rupture of the interosseous ligamen t, age indeterminate. Other findings as above. If clinically indicated further study with MRI can b e performed. DATA REPOSITORY: RADIATION DOSE DELIVERED:
--- NOTE | 2020-11-17 21:49 | DI.VRAD_ITS ---
PROCEDURE INFORMATION: Exam: XR Right Elbow Exam date and time: 11/17/2020 9:30 PM Age: 55 years old Clinical indication: Injury or trauma; Fall; Blunt trauma (contusions or hematomas); Elbow; Right; Injury date: 11/15/20; Injury details: Fell backwards on ice TECHNIQUE: Imaging protocol: XR Right elbow. Views: 3 or more views. COMPARISON: No relevant prior studies available. FINDINGS: Bones/joints: Mild degenerative changes with enthesophyte formation. No displaced fractures or dislocations identified. Soft tissues: Grossly unremarkable. IMPRESSION: No fractures or dislocations. Mild degenerative changes. Dictated and Authenticated by: Coleman Javier MD. Ordering:NICHOLE Shin MD
--- NOTE | 2020-11-17 21:51 | DI.VRAD_ITS ---
PROCEDURE INFORMATION: Exam: XR Left Wrist Exam date and time: 11/17/2020 9:30 PM Age: 55 years old Clinical indication: Injury or trauma; Fall; Blunt trauma (contusions or hematomas); Wrist; Left; Injury date: 11/15/20; Injury details: Fell backwards on ice TECHNIQUE: Imaging protocol: XR Left wrist. Views: 3 or more views. COMPARISON: No relevant prior studies available. FINDINGS: Bones/joints: Degenerative changes at the base of the 1st metacarpal bone. Widening of the scapholunate space. Narrowing at the radiocarpal articulations. Tiny osseous fragment adjacent to the scaphoid bone, likely spectrum of degenerative changes. Subchondral cyst formation within distal ulna. Soft tissues: Mild soft tissue swelling.. IMPRESSION: No acute fractures or dislocations. Degenerative changes, scapholunate prolapse. Soft tissue swelling. Dictated and Authenticated by: Coleman Javier MD. Ordering:NICHOLE Shin MD
== END 2020-11-17 23:05 | disposition home or self-care (01) ==
PROVIDERS: Emergency Provider Student in an Organized Health Care Education/Training Program; PCP Family Medicine
DX: S63.005A Unspecified dislocation of left wrist and hand, initial encounter (principal); S50.01XA Contusion of right elbow, initial encounter; W00.0XXA Fall on same level due to ice and snow, initial encounter; I10 Essential (primary) hypertension
CPT/HCPCS: 29125; 99284; 73080; 73110; 99283

== ENCOUNTER 2021-04-20 14:29 | Emergency (ER) | payer OTHER, SELFPAY ==
[2021-04-20 14:37] VITALS: BP 134/93; PULSE 100; RESP 18; TEMP 36.6; O2SAT 97
--- NOTE | 2021-04-20 14:45 | DI.RAD_ITS ---
Exam(s) XR FOOT LT COMPLETE EXAM: XR FOOT LT COMPLETE CLINICAL HISTORY: left foot. TECHNIQUE: 2D digital imaging was performed. COMPARISON: No exams were available for comparison FINDINGS: BONES: No acute fracture is present. No bony destructive lesion is seen. Plantar calcaneal spur. Mi ld intertarsal and 1st MTP joint degenerative changes. JOINTS: No dislocation present. SOFT TISSUE: Normal. IMPRESSION: Heel spur and degenerative changes. No acute abnormality. DATA REPOSITORY: RADIATION DOSE DELIVERED:
--- NOTE | 2021-04-20 14:53 | W.ED.GENAD ---
Discharge Plan Disposition Patient Disposition: HOME Condition: Good Discharge Details Clinical Impression: Injury of foot, left Primary Care Provider: Carlos Leroy JR ED Provider: Christel Garber Home Meds and New Rx's Prescriptions: Continued celecoxib [Celebrex] 200 mg Capsule 200 mg PO BID RF: 0 lamotrigine [Lamictal] 200 mg Tablet 400 mg PO QAM RF: 0 oxybutynin chloride [Ditropan XL] 10 mg Tablet Extended Release 24hr 30 mg PO QAM RF: 0 memantine [Namenda] 10 mg Tablet 50 mg PO QAM RF: 0 bupropion HCl [Wellbutrin XL] 300 mg Tablet Extended Release 24 Hr 450 mg PO QAM RF: 0 baclofen 20 mg Tablet 20 mg PO QID RF: 0 gabapentin [Neurontin] 600 mg Tablet 300 - 600 mg PO QID RF: 0 oxymorphone 40 mg Tablet Extended Release 12 Hr 40 mg PO BID RF: 0 oxymorphone 20 mg Tablet Extended Release 12 Hr 20 mg PO BID PRNRF: 0 omega-3 fatty acids [Fish Oil Concentrate] 1,000 mg Capsule 2,000 mg PO TID RF: 0 TripleFlex 750-375-400 mg Tablet 1 tab PO BID RF: 0 PreserVision Lutein 226 mg-200 unit -5 mg-0.8 mg Capsule 1 cap PO BID RF: 0 docusate sodium [Colace] 100 mg Capsule 100 mg PO TID RF: 0 calcium citrate-vitamin D3 [Citracal Regular] 250 mg calcium- 200 unit Tablet 2 tab PO DAILY RF: 0 L-Arginine(alpha-ketoglutarat) 350 mg Tablet Extended Release 350 mg PO DAILY RF: 0 levomefolate calcium [L-Methylfolate] 15 mg Tablet 15 mg PO DAILY RF: 0 oxymorphone 20 mg Tablet Extended Release 12 Hr 20 mg PO HS RF: 0 tizanidine 4 mg Tablet 4 mg PO BID RF: 0 zaleplon 10 mg Capsule 20 mg PO HS RF: 0 melatonin 10 mg Tablet 10 mg PO HS RF: 0 Movantik 25 mg Tablet 50 mg PO DAILY RF: 0 fluticasone propionate [Flonase Allergy Relief] 50 mcg/actuation [place],Suspension 1 spray INTRANASAL DAILY PRNRF: 0 ketorolac 30 mg/mL Solution 30 mg IM PRN PRNRF: 0 testosterone 1 % (25 mg/2.5gram) Gel In Packet 1 packet topical DIRECTED PRNRF: 0 multivitamin Tablet 1 tab PO DAILY RF: 0 atorvastatin [Lipitor] 20 mg Tablet 20 mg PO DAILY RF: 0 hydrochlorothiazide 25 mg Tablet 25 mg PO DAILY RF: 0 ondansetron 4 mg Tablet,Disintegrating 4 mg PO Q6H PRNRF: 0 omeprazole 20 mg Tablet,Delayed Release (Dr/Ec) 20 mg PO BID RF: 0 Ketoprofen/Ketamine topical PRNRF: 0 tamsulosin [Flomax] 0.4 mg Capsule 0.4 mg PO DAILY RF: 0 duloxetine 60 mg Capsule,Delayed Release(Dr/Ec) 60 mg PO DAILY RF: 0 Ketamine [place] 60 mg PO DAILY RF: 0 Ketamine [place] 240 mg PO QHS RF: 0 Ketamine [place] 120 mg PO DAILY RF: 0 Discharge Instructions Additional Instructions: Follow-up for repeat imaging in 1 week with persistent pain Use boot while off and walking during the day Use crutches to assist you with ambulation additionally Ice Return earlier should you have new or worsening complaints Medical Decision Making Patient appears well, he has reproducible tenderness to his left lateral foot 90 x-ray left foot does not show acute abnormality per radiology interpretation in my review Neurovascularly intact Repeat x-ray in 1 week with persistent pain Discharge home with boot for comfort Medical Records Medical records reviewed: Yes I reviewed the patient's medical records. Lab Data Lab results reviewed: Yes I reviewed the patient's lab results. HPI General Mode of arrival: ambulatory. Date/Time Provider Initiated Documentation: 04/20/21 14:32. Limitations to Documentation: no limitations. Information obtained by: patient. HPI Narrative: This 56-year-old gentleman with history of osteopenia and chronic pain presents with left lateral foot pain. Patient states pain began when he was walking yesterday. He said persistent pain by time, however he states that the pain is improved if he wears a boot that he had at home. He denies any significant strength or sensation change. He has a history of gout and this does not grossly changed. Patient denies any knee pain. Related Data Home Medications Medication Instructions Recorded Confirmed Ketoprofen/Ketamine TOPICAL PRN 06/01/19 L-Arginine(alpha-ketoglutarat) 350 mg PO DAILY 06/01/19 04/20/21 Movantik 50 mg PO DAILY 06/01/19 04/20/21 PreserVision Lutein 1 cap PO BID 06/01/19 04/20/21 TripleFlex 1 tab PO BID 06/01/19 04/20/21 atorvastatin [Lipitor] 20 mg PO DAILY 06/01/19 04/20/21 baclofen 20 mg PO QID 06/01/19 04/20/21 bupropion HCl [Wellbutrin XL] 450 mg PO QAM 06/01/19 04/20/21 calcium citrate-vitamin D3 2 tab PO DAILY 06/01/19 04/20/21 [Citracal Regular] celecoxib [Celebrex] 200 mg PO BID 06/01/19 04/20/21 docusate sodium [Colace] 100 mg PO TID 06/01/19 04/20/21 fluticasone propionate [Flonase 1 spray INTRANASAL DAILY PRN 06/01/19 04/20/21 Allergy Relief] gabapentin [Neurontin] 300 - 600 mg PO QID 06/01/19 04/20/21 hydrochlorothiazide 25 mg PO DAILY 06/01/19 04/20/21 ketorolac 30 mg IM PRN PRN 06/01/19 04/20/21 lamotrigine [Lamictal] 400 mg PO QAM 06/01/19 04/20/21 levomefolate calcium 15 mg PO DAILY 06/01/19 04/20/21 [L-Methylfolate] melatonin 10 mg PO HS 06/01/19 11/17/20 memantine [Namenda] 50 mg PO QAM 06/01/19 04/20/21 multivitamin 1 tab PO DAILY 06/01/19 04/20/21 omega-3 fatty acids [Fish Oil 2,000 mg PO TID 06/01/19 04/20/21 Concentrate] omeprazole 20 mg PO BID 06/01/19 04/20/21 ondansetron 4 mg PO Q6H PRN 06/01/19 04/20/21 oxybutynin chloride [Ditropan XL] 30 mg PO QAM 06/01/19 04/20/21 oxymorphone 20 mg PO BID PRN 06/01/19 04/20/21 oxymorphone 20 mg PO HS 06/01/19 04/20/21 oxymorphone 40 mg PO BID 06/01/19 04/20/21 testosterone 1 packet TOPICAL DIRECTED PRN 06/01/19 04/20/21 tizanidine 4 mg PO BID 06/01/19 04/20/21 zaleplon 20 mg PO HS 06/01/19 04/20/21 Ketamine [place] 60 mg PO DAILY 04/20/21 04/20/21 Ketamine [place] 120 mg PO DAILY 04/20/21 Ketamine [place] 240 mg PO QHS 04/20/21 04/20/21 duloxetine 60 mg PO DAILY 04/20/21 04/20/21 tamsulosin [Flomax] 0.4 mg PO DAILY 04/20/21 04/20/21 Allergies Allergy/AdvReac Type Severity Reaction Status Date / Time fentanyl AdvReac Nausea Unverified 04/20/21 14:40 gabapentin AdvReac Headache Unverified 04/20/21 14:40 General Stated Complaint: Orthopedic CARLITA: 4 Review of Systems Narrative: Review of systems negative x3 aside from where indicated in HPI [facility] Medical History Chronic pain High blood cholesterol High blood pressure Leg pain Social History Smoking/Tobacco Use Status: Never Smoking risk assessment performed?: Yes Alcohol Intake: never Drug use: Never Do you feel safe at home: Yes Do you feel safe in your relationship?: Yes Exam Neuro General: patient alert and patient oriented x3 Extrem Other: Left lateral foot pain, mild swelling, neurovascularly intact, no tenderness to ankle or knee Course Vital Signs Vital signs: Vital Signs Temperature 36.6 C 04/20/21 14:37 Pulse 100 H 04/20/21 14:37 Respiratory Rate 18 04/20/21 14:37 Blood Pressure 134/93 H 04/20/21 14:37 Pulse Oximetry 97 04/20/21 14:37 Temperature 36.6 C 04/20/21 14:37 Temperature Source Skin 04/20/21 14:37 Pulse 100 H 04/20/21 14:37 Respiratory Rate 18 04/20/21 14:37 Respiratory Effort 04/20/21 14:40 Blood Pressure 134/93 H 04/20/21 14:37 Blood Pressure Position Sitting 04/20/21 14:37 Pulse Oximetry 97 04/20/21 14:37 Oxygen Delivery Method Room Air 04/20/21 14:37 Oxygen Flow Rate 0 04/20/21 14:37 Pain Level 9 04/20/21 14:37
== END 2021-04-20 16:16 | disposition home or self-care (01) ==
PROVIDERS: Emergency Provider Physician Assistant; PCP Family Medicine
DX: S99.922A Unspecified injury of left foot, initial encounter (principal); X58.XXXA Exposure to other specified factors, initial encounter
CPT/HCPCS: 29515; 99283; 73630